=== PATIENT | female | born 1970 | race Two or more races ===

== ENCOUNTER 2017-01-12 18:17 | Emergency (ER) | payer BC, SELFPAY ==
[~2017-01-12] VITALS: Ht 172.7 cm; Wt 118.0 kg
[2017-01-12 18:52] LABS: HEMATOCRIT 46.3 % (34.6-47.8); HEMOGLOBIN 15.7 g/dL (11.7-16.4); WHITE BLOOD COUNT 6.3 x10^3/uL (3.4-10)
[2017-01-12] MEDS ORDERED: LOSA25TA5 PO (18:52)
[2017-01-12] MEDS ORDERED: ALBUTEROL/IPRATROPIUM 2.5MG/0.5MG, 3 ML ONE (18:57)
[2017-01-12 19:00] LABS: BLOOD UREA NITROGEN 13 mg/dL (7-18)
[2017-01-12] MEDS ORDERED: hydrALAzine 20 MG/ML, 1ML IV ONE (19:00)
[2017-01-12] MEDS ORDERED: ALBUTEROL/IPRATROPIUM 2.5MG/0.5MG, 3 ML NPPB ONE (19:00)
[2017-01-12] MEDS ORDERED: SODIUM CHLORIDE FLUSH 10ML SYR IVF ONE (19:00)
[2017-01-12 19:06] LABS: IS PT STATUS REG ER OR PRE ER? YES
[2017-01-12] MEDS ORDERED: hydrALAzine 20 MG/ML, 1ML ONE (19:35)
[2017-01-12 19:48] VITALS: BP 170/82
== END 2017-01-12 20:14 | disposition home or self-care (01) ==
LOC: ED 20:00
DX: J20.8 Acute bronchitis due to other specified organisms (principal); B96.89 Other specified bacterial agents as the cause of diseases classified elsewhere; I10 Essential (primary) hypertension; Z91.14 Patient's other noncompliance with medication regimen
CPT/HCPCS: 36415; 71010; 80048; 82040; 83880; 84484; 85025; 93005; 94640; 96374; 99285; J0360; J7620